=== PATIENT | male | born 1995 | race Caucasian/White ===

== ENCOUNTER 2021-09-06 09:34 | Emergency (ER) | payer MEDICAID, SELFPAY ==
[~2021-09-06] VITALS: Ht 175.3 cm; Wt 99.8 kg
[2021-09-06] MEDS ORDERED: TETRACAINE HCL/PF 0.5% OPHTHALMIC DROPS 4 ML OP ONE (09:35)
[2021-09-06 09:47] VITALS: BP_SYST 154
--- NOTE | 2021-09-06 09:52 | NUR ---
Patient triaged and placed in waiting room. VSS and patient appears in no acute distress at this time. Accompanied by self, awaiting available bed, and MD notified of need for MSE.
--- NOTE | 2021-09-06 10:00 | NUR ---
Patient to ER bed 5 to gown for evaluation. Side rails up. Report given to Christine CLAIRE.
--- NOTE | 2021-09-06 10:06 | NUR ---
DR PINEDA IN ROOM FOR EXAM
--- NOTE | 2021-09-06 10:23 | NUR ---
PT COMES TO ER WITH C/O LEFT EYE PAIN AFTER CUTTINGG SOMEMETAL COUPLE DAYS AGO. EYE RED, TEARFUL, AND PAINFUL PER PT. EYE KIT AT BEDSIDE FOR DR PINEDA. PT DENIES ANY CHANGES INVISION, STATES JUST "IRRITATED"
--- NOTE | 2021-09-06 11:39 | NUR ---
Patient given written and verbal discharge instructions and verbalizes understanding. ER MD discussed with patient the results and treatment provided. Patient in stable condition. ID arm band removed. Patient educated on pain management and to follow up with PMD. Pain Scale [2]. Opportunity for questions provided and answered. Medication side effect fact sheet provided. PT TO F/U WITH DR VILLALTA-OPTHOMOLOGIST IN [place], ADDRESS AN PHONE NUMBER GIVEN.
[2021-09-06 11:42] VITALS: BP_SYST 140
== END 2021-09-06 11:42 | disposition home or self-care (01) ==
LOC: SED 09:34
DX: T15.02XA Foreign body in cornea, left eye, initial encounter (principal); X58.XXXA Exposure to other specified factors, initial encounter; Y93.9 Activity, unspecified; Y92.9 Unspecified place or not applicable; Y99.9 Unspecified external cause status
CPT/HCPCS: 99284